=== PATIENT | male | born 1955 | race Hispanic/Latino ===

== ENCOUNTER 2022-01-08 06:38 | Inpatient (IN) | payer BC, MEDICARE, SELFPAY ==
[2022-01-08] VITALS (19 sets, daily range): BP systolic 107–157; BP diastolic 57–113; PULSE 54–83; RESP 15–24; TEMP 36.4–36.6; O2SAT 92–99; BMI 43.6
--- NOTE | ~2022-01-08 | US_ITS ---
EXAMINATION: US venous doppler [facility] DATE: 01/09/2022 12:21 INDICATION: edema . TECHNIQUE: Grayscale images without and with compression and Doppler images of the bilateral lower ex tremity veins were obtained. COMPARISON: None FINDINGS: The right common femoral vein, profunda (deep) femoral vein, femoral vein, popliteal vein, peroneal v ein, posterior tibial veins, gastrocnemius vein, and greater saphenous vein are patent. The left common femoral vein, profunda femoral vein, femoral vein, popliteal vein, peroneal vein, pos terior tibial veins, gastrocnemius vein, and greater saphenous vein are patent. IMPRESSION: 1. Patent bilateral lower extremity veins. No evidence of deep venous thrombosis. Reviewed, dictated and finalized at location K. [facility]ER IMPRESSION: 1. Patent bilateral lower extremity veins. No evidence of deep venous thrombos is.
--- NOTE | ~2022-01-08 | XR_ITS ---
XR chest 2V DATE: 01/08/2022 07:33 INDICATION: Chest pain, syncope TECHNIQUE: PA and lateral views COMPARISON: 08/20/2018 AP and lateral chest FINDINGS: Cardiomegaly. Mild aortic unfolding. There is pulmonary vascular redistribution which may i ndicate mild pulmonary venous hypertension. Mild atelectasis at the right lung base. The lungs otherwise appear clear. No pleural effusion or pne umothorax. IMPRESSION: Cardiomegaly, pulmonary vascular redistribution, which may indicate mild congestive heart failure Mild atelectasis at right lung base Reviewed, dictated and finalized at location A.
--- NOTE | ~2022-01-08 | CT_ITS ---
EXAMINATION: CTA chest PE protocol DATE: 01/08/2022 09:11 INDICATION: Shortness of breath. Upper chest pain. Elevated d-dimer. TECHNIQUE: Computed tomography angiography (CTA) of the chest was performed with 100 mL Omnipaque-350 intravenous contrast timed to evaluate the pulmonary arteries. Coronal maximum intensity projection 3D-reconstructions were created by the technologist. Automated exposure control and iterative reconst ruction technique were employed. Exam dose: 974.16 mGy-cm total exam DLP. COMPARISON: 01/08/2022 PA and lateral chest CTA chest FINDINGS: There is diagnostic contrast enhancement of the pulmonary arteries and no evidence of pulmo nary embolism. Cardiomegaly. Coronary artery calcification. Prominent mitral annulus calcification. No pericardial o r pleural effusion. No thoracic aortic aneurysm or dissection. No hilar or mediastinal mass lesion or lymphadenopathy. There is mild diffuse patchy right upper lobe infiltrate. There is mild atelectasis at the left lung base. Normal morphology of the adrenal glands. Multiple faceted calcified gallstones, measuring up to approximately 8.7 mm. Degenerative changes of the lower cervical, thoracic and upper lumbar spine. No suspicious osteolytic or osteoblastic lesions are noted. IMPRESSION: Mild diffuse patchy right upper lobe infiltrate, suggesting right upper lobe pneumonia Mild atelectasis at left lung base No evidence of pulmonary embolism Cardiomegaly Cholelithiasis Reviewed, dictated and finalized at Location [facility]. Reviewed, dictated and finalized at location A.
--- NOTE | 2022-01-08 06:40 | ECG_ITS ---
Measurements Intervals [place] Rate: 55 P: 22 DC: 135 QRS: 18 QRSD: 92 T: 112 QT: 430 QTc: 412 Interpretive Statements SINUS BRADYCARDIA LEFT VENTRICULAR HYPERTROPHY WITH ST-T CHANGE CANNOT RULE OUT SEPTAL INFARCT, AGE INDETERMINATE BASELINE ARTIFACT- I, II, III, AVR, AVF ABNORMAL ECG NO PREVIOUS ECG AVAILABLE FOR COMPARISON Electronically Signed On 01-08-2022 7:41:01 CDT by Reginaldo Valdes D.O.
[2022-01-08] MEDS: ONDANSETRON INJ 4 MG/2 ML VIAL (06:48)
--- NOTE | 2022-01-08 07:11 | ED.CHESTPAIN ---
HPI - Chest Pain General Chief Complaint: Chest Pain Stated Complaint: CP and SOB Time Seen by Provider: 01/08/22 07:01 Source: RN notes reviewed History of Present Illness HPI narrative: Patient presents emergency department from home for chest pain. Patient states he got up this morning was going to get a shower when he experienced chest pain states the pain began the left side of his chest and radiated across the right side of his chest. The pain was described as a pressure. He does note mild shortness of breath with the pain. Patient called EMS at that time was transferred to the ER he was given a nitro which he states is completely resolved his pain and he is chest pain-free at this time. States that he does have a history of previous coronary artery disease with stent placement and is followed at the [place] Related Data Allergies Allergy/AdvReac Type Severity Reaction Status Date / Time codeine Allergy Mild Hives Verified 01/08/22 06:49 Review of Systems Review of Systems: Gen.: Denies fevers or chills ENT: Denies congestion Respiratory: Reports shortness of breath with chest pain CV: See HPI GI: Denies abdominal pain nausea, emesis or diarrhea Musculoskeletal: Denies back pain or muscle pain Neuro: Denies numbness, tingling, weakness or focal weakness Skin: Denies rash Except as documented, all other systems reviewed and negative [facility] Past Medical History Medical History (Updated 01/08/22 @ 10:04 by Elroy Gilbert DO) Coronary artery disease Diabetes mellitus Hypercholesterolemia Hypertension Social History Social History (Updated 01/08/22 @ 08:08 by Elroy Gilbert DO) Smoking status: Former smoker Exam Narrative: APPEARANCE: No acute distress, nontoxic, resting in bed EYES: EOMI HEENT: Normocephalic, atraumatic, OMM RESPIRATORY: No respiratory distress wheezing in the bilateral lung brown with decreased breath sounds in bases no rhonchi CARDIOVASCULAR: Regular rate and rhythm without murmurs rubs or gallops. ABDOMINAL: Soft, nontender, nondistended, no rebound or guarding MUSCULOSKELETAl: Moves all extremities. No clubbing, cyanosis or edema. NEURO: Awake and alert. Following commands, speech normal, no focal deficits SKIN:: Warm, dry. No rashes lesions or abrasions PSYCHIATRIC: Normal affect/mood, Course Course Emergency Course: Patient given 2 breathing treatments in ED following this still continues have some wheezing upper lung brown with breathing is improved Discussed with Dr. Pratt presentation and work-up agrees with consult Discussed with Dr. Baker presentation work-up agrees with admission Discussed with patient and family results of workup and diagnosis. Discussed need for admission. Patient and family understand and agree to current treatment plan Vital Signs Vital signs: Vital Signs Pulse Rate 57 L 01/08/22 06:32 Respiratory Rate 17 01/08/22 06:32 Blood Pressure 140/113 H 01/08/22 06:32 Pulse Oximetry 93 01/08/22 06:32 Oxygen Delivery Room Air 01/08/22 06:32 Pulse Rate 76 01/08/22 09:41 Respiratory Rate 17 01/08/22 09:41 Blood Pressure 131/57 L 01/08/22 09:41 Pulse Oximetry 95 01/08/22 09:41 Oxygen Delivery Room Air 01/08/22 07:51 MDM - Chest Pain Lab Data Result diagrams: 01/08/22 07:06 01/08/22 07:06 Labs: Lab Results 01/08/22 01/08/22 01/08/22 Range/Units 07:06 07:06 07:06 WBC 8.1 (4.5-10.0) K/mm3 RBC 4.12 L (4.6-6.20) M/mm3 Hgb 13.1 L (14.0-18.0) g/dL Hct 40.7 L (42.0-52.0) % MCV 98.8 (80-100) fl MCH 31.8 (26-34) pg MCHC 32.2 (32-36) g/dl RDW 13.2 (11.5-14.5) % Plt Count 190 (150-375) k/mm3 MPV 11.6 H (7.4-10.4) fl Immature Gran % (Auto) 0.2 (0-0.5) % Neut % (Auto) 62.6 (45.5-73.1) % Lymph % (Auto) 25.8 (18.3-44.2) % [place] % (Auto) 8.0 (2.6-8.5) % Eos % (Auto) 3.2 (0-4.4) % Baso % (Auto) 0.2 (0.2-1.2
[2022-01-08 07:12] LABS: Basophils Percent Auto 0.2 % (0.2-1.2); Eosinophils Absolute Auto 0.3 K/mm3 (0-0.3); Eosinophils Percent Auto 3.2 % (0-4.4); Hematocrit 40.7 % (42.0-52.0); Hemoglobin 13.1 g/dL (14.0-18.0); Immature Granulocyte Absolute 0.02 K/mm3 (0.00-0.031); Immature Granulocyte Percent A 0.2 % (0-0.5); Lymphocytes Absolute Auto 2.09 K/mm3 (0.9-3.2); Lymphocytes Percent Auto 25.8 % (18.3-44.2); Mean Corpuscular HGB Conc 32.2 g/dl (32-36); Mean Corpuscular Hemoglobin 31.8 pg (26-34); Mean Corpuscular Volume 98.8 fl (80-100); Mean Platelet Volume 11.6 fl (7.4-10.4); Monocytes Absolute Auto 0.7 K/mm3 (0.1-0.6); Neutrophils Absolute Auto 5.1 K/mm3 (1.3-6.7); Neutrophils Percent Auto 62.6 % (45.5-73.1); Platelet Count Result 190 k/mm3 (150-375); Red Blood Count 4.12 M/mm3 (4.6-6.20); Red Cell Distribution Width 13.2 % (11.5-14.5); White Blood Count 8.1 K/mm3 (4.5-10.0)
[2022-01-08 07:25] LABS: Alanine Aminotransferase 35 U/L (6-50); Albumin Level 4.2 g/dL (3.5-5.1); Alkaline Phosphatase 64 U/L (38-126); Anion Gap 12 mmol/L (8-16); Aspartate Amino Transferase 32 U/L (17-59); Bilirubin,Total 0.8 mg/dL (0.2-1.3); Blood Urea Nitrogen 21 mg/dL (9-20); Calcium 8.3 mg/dL (8.4-10.2); Carbon Dioxide 27 mmol/L (22-30); Chloride 101 mmol/L (98-107); Estimated CRCL calculation 71 ml/min; Estimated Glomerular Filt Rate > 60; Glucose 164 mg/dL (65-110); Lipase 149 U/L (23-300); Potassium 3.9 mmol/L (3.4-5.0); Sodium 140 mmol/L (137-145)
[2022-01-08 07:37] LABS: Troponin I < 0.012 ng/mL (0.000-0.034)
[2022-01-08 07:47] LABS: INR 1.1; Prothrombin Time 13.6 Seconds (11.1-14.7)
[2022-01-08 07:48] LABS: Partial Thromboplastin Time 23.4 SECONDS (22.3-36.8)
[2022-01-08 08:14] LABS: SARS-CoV-2 RNA PCR Negative
[2022-01-08] MEDS: methylPREDNISolone SOD SUCC 125 MG VIAL IV PUSH (08:15)
[2022-01-08] MEDS: ALBUTEROL SULFATE NEB 2.5 MG/3 ML INH 5 MG INHALATION ×3 (08:18→20:41)
[2022-01-08] MEDS: IPRATROPIUM BR 0.02% INH SOLN 0.5 MG/2.5 ML VIAL INHALATION ×3 (08:18→20:42)
--- NOTE | 2022-01-08 08:21 | PC.NURSE ---
lab called regarding add on labs.
[2022-01-08 08:40] LABS: NT Pro B Type Natriuretic Pept 1220 pg/mL (5-100)
[2022-01-08 08:49] LABS: D Dimer 1.05 ug/mL (<0.48)
[2022-01-08] MEDS: SODIUM CHLORIDE 0.9% IV 1,000 ML 999 ML IV CONT (10:29)
[2022-01-08 10:35] LABS: Lactic Acid Reflex 0.9 mmol/L (0.7-2.0)
[2022-01-08 10:48] LABS: Troponin I < 0.012 ng/mL (0.000-0.034)
--- NOTE | 2022-01-08 12:51 | ADMGEN ---
This patient, Anderson Duran, was admitted to IMU Room 209-01. Patient/family oriented to hospital policies and general routines including ID bracelet, bed and alarms, visiting hours, pain management, procedures, bathroom and other care routines, personal items, smoking policy, room service/diet, and visiting hours. Information on how to activate the Rapid Response Team has been discussed. Patient/Family are encouraged to report perceived risks to care and to ask questions if they do not understand what they are told or what they should do.
--- NOTE | 2022-01-08 13:45 | PM.IMHP ---
H&P: HPI History of Present Illness Date/Time: 01/08/22 13:45 Chief Complaint: Chest pain and shortness a breath. Narrative: This is a very pleasant 66-year-old male with coronary artery disease status post stent x3 followed by the [place], hypertension, hyperlipidemia, asthma, and type 2 diabetes mellitus who presented to the emergency department via EMS from his place of employment for evaluation of chest pain and shortness of breath. He has not felt well over the past 1 week with nonproductive cough and wheezing which he initially attributed to change in weather. On he had mid chest discomfort with the shortness of breath and he was seen in the ER at [facility]. Apparently everything checked out okay and he was discharged home with instructions to follow up with his chucker. He spoke with his chucker the following day and she instructed him to return to the emergency department on Monday morning for admission for a cardiac workup however his symptoms recurred today and he came to the closest ER. Upon waking this morning he was okay, albeit he has been tired as he has been on mandatory overtime working 6 days a week. Not long prior to arrival he developed sudden onset of aching discomfort throughout the anterior chest associated with shortness of breath, lightheadedness, dizziness, and sweats. He sat down and immediately took a sublingual nitroglycerin and his symptoms started to subside. About 2 minutes thereafter he had an urge to have a bowel movement and he stood up to go to the bathroom however he instead lost consciousness and fell back, striking his head on the ground. EMS was summoned and he was brought to the ER for evaluation. His vital signs were stable on arrival and he has had 3 negative troponins. D-dimer was elevated and a subsequent CTA of the chest was negative for pulmonary embolism though did note findings of right upper lobe pneumonia and cardiomegaly. Given his recurrent chest pain, the [place] was contacted however they have no beds and he is being admitted to this facility. At the time my evaluation he is doing okay and he has not had any recurrence of his chest pain. He feels much better after receiving a nebulizer and Solu-Medrol in the emergency department. Review of Systems Review of Systems: Twelve systems were reviewed. No fever. Denies sick contacts. No recent antibiotic use. He has not noticed any blood in his stool. He has a mild headache secondary to the nitroglycerin. No sinus congestion and sore throat. Cough is nonproductive. He has not had exertional chest pain. No pleuritic pain or palpitations. Denies orthopnea and paroxysmal nocturnal dyspnea. More recently he has had increase in lower extremity swelling up to the knees, right greater than left. This is quite unusual for him. No history of venous thromboembolism. No vertigo. No nausea or vomiting. He had a single episode of diarrhea at work today. He believes his diabetes is well controlled on metformin. Except as documented, all other systems were reviewed and are negative. [facility] Past Medical History Medical History Asthma Coronary artery disease Status post stent x 3. Followed by cardiology at [facility]. Diabetes mellitus Hypercholesterolemia Hypertension Obstructive sleep apnea on CPAP Surgical History Surgical History History of arthroscopy of both knees History of bilateral carpal tunnel release History of cardiac catheterization History of coronary artery stent placement Family History Family History Mother Asthma Sibling Asthma Father No problems noted. Social History Social History Social History: Surrogate medical decision maker: Genevieve Duran, spouse. Code status: Full code.
[2022-01-08 14:02] LABS: Troponin I < 0.012 ng/mL (0.000-0.034)
[2022-01-08] MEDS: methylPREDNISolone SOD SUCC 125 MG VIAL 60 MG IV PUSH (14:43)
[2022-01-08 19:35] LABS: Hemoglobin A1C 6.1 % (<5.7)
[2022-01-08] MEDS: carvediloL 6.25 MG TABLET PO (20:18)
[2022-01-08 20:28] LABS: Thyroid Stimulating Hormone Reflex 0.181 uIU/mL (0.465-4.68)
[2022-01-08 20:36] LABS: Glucose Point of Care 215 mg/dl (65-105)
[2022-01-08] MEDS: WATER FOR IRRIGATION, STERILE 1,000 ML BOTTLE 1000 ML (22:00)
[2022-01-08 22:10] LABS: Total Triiodothyronine (T3) 1.35 NG/ML (0.97-1.69)
[2022-01-09] VITALS (23 sets, daily range): BP systolic 115–158; BP diastolic 52–82; PULSE 60–102; RESP 14–20; TEMP 36–36.9; O2SAT 93–100
--- NOTE | 2022-01-09 01:02 | PC.NURSE ---
Daylight Savings Time For Daylight Savings Time Ending in the Fall - Clocks are moved back. For Daylight Savings Time Beginning in the Spring - Clocks are moved ahead. For [facility], the time of change occurs at 0200 hrs. Time is taken from the server engineer. This entry on the patient's chart recognizes the change in time reflected during documentation. Example: 2 entries for vital signs may be charted for 0200 hrs.
[2022-01-09] MEDS: IPRATROPIUM BR 0.02% INH SOLN 0.5 MG/2.5 ML VIAL INHALATION ×4 (03:32→20:39)
[2022-01-09] MEDS: ALBUTEROL SULFATE NEB 2.5 MG/3 ML INH 5 MG INHALATION ×4 (03:32→20:39)
[2022-01-09 05:42] LABS: Basophils Percent Auto 0.1 % (0.2-1.2); Hematocrit 41.3 % (42.0-52.0); Hemoglobin 13.1 g/dL (14.0-18.0); Immature Granulocyte Absolute 0.02 K/mm3 (0.00-0.031); Immature Granulocyte Percent A 0.2 % (0-0.5); Lymphocytes Absolute Auto 1.83 K/mm3 (0.9-3.2); Lymphocytes Percent Auto 19.2 % (18.3-44.2); Mean Corpuscular HGB Conc 31.7 g/dl (32-36); Mean Corpuscular Hemoglobin 31.6 pg (26-34); Mean Corpuscular Volume 99.5 fl (80-100); Mean Platelet Volume 11.8 fl (7.4-10.4); Monocytes Absolute Auto 0.6 K/mm3 (0.1-0.6); Monocytes Percent Auto 6.6 % (2.6-8.5); Neutrophils Absolute Auto 7.1 K/mm3 (1.3-6.7); Neutrophils Percent Auto 73.9 % (45.5-73.1); Platelet Count Result 199 k/mm3 (150-375); Red Blood Count 4.15 M/mm3 (4.6-6.20); Red Cell Distribution Width 13.3 % (11.5-14.5); White Blood Count 9.6 K/mm3 (4.5-10.0)
[2022-01-09 05:47] LABS: Alanine Aminotransferase 32 U/L (6-50); Albumin Level 4.2 g/dL (3.5-5.1); Alkaline Phosphatase 61 U/L (38-126); Anion Gap 13 mmol/L (8-16); Aspartate Amino Transferase 27 U/L (17-59); Bilirubin,Total 0.5 mg/dL (0.2-1.3); Blood Urea Nitrogen 26 mg/dL (9-20); Calcium 8.5 mg/dL (8.4-10.2); Carbon Dioxide 27 mmol/L (22-30); Chloride 100 mmol/L (98-107); Cholesterol 220 mg/dL (0-200); Estimated CRCL calculation 96 ml/min; Estimated Glomerular Filt Rate > 60; Glucose 142 mg/dL (65-110); HDL Direct 57 mg/dL; Potassium 4.1 mmol/L (3.4-5.0); Sodium 140 mmol/L (137-145); Triglycerides 135 mg/dL (<150)
[2022-01-09 05:58] LABS: LDL Cholesterol Direct 93 mg/dL
[2022-01-09 08:27] LABS: Glucose Point of Care 185 mg/dl (65-105)
[2022-01-09] MEDS: lisinopriL 10 MG TABLET 30 MG PO (09:19)
[2022-01-09] MEDS: carvediloL 6.25 MG TABLET PO ×2 (09:19→16:54)
[2022-01-09] MEDS: ASPIRIN 81 MG CHEWABLE TABLET PO (09:20)
[2022-01-09] MEDS: FUROSEMIDE INJ 40 MG/4 ML VIAL IV PUSH (10:51)
[2022-01-09] MEDS: predniSONE 20 MG TABLET 40 MG PO (10:51)
--- NOTE | 2022-01-09 11:53 | PM.IMPN ---
Progress Note: A&P Assessment and Plan (1) Chest pain: Code(s): R07.9 - Chest pain, unspecified Status: Acute Assessment and Plan: cardiology consult. Echocardiogram pending. (2) Community acquired pneumonia: Code(s): J18.9 - Pneumonia, unspecified organism Status: Acute Assessment and Plan: Continue antibiotics. (3) Syncope: Code(s): R55 - Syncope and collapse Status: Acute Assessment and Plan: Patient had a syncopal episode within a minute or 2 of taking sublingual nitroglycerin which is likely the etiology. He will be monitor on telemetry to rule out cardiac dysrhythmia. (4) Asthma exacerbation: Code(s): J45.901 - Unspecified asthma with (acute) exacerbation Status: Acute Assessment and Plan: Prednisone. (5) Obstructive sleep apnea on CPAP: Code(s): G47.33 - Obstructive sleep apnea (adult) (pediatric); Z99.89 - Dependence on other enabling machines and devices Status: Acute Assessment and Plan: CPAP will be provided for the patient to use while hospitalized. (6) Coronary artery disease: Code(s): I25.10 - Atherosclerotic heart disease of [place] coronary artery without angina pectoris Status: Acute Assessment and Plan: Continue aspirin and beta-ky. I do not see that he is on a statin for unclear reasons. Lipid levels ordered for a.m.. Subjective Date/time seen: 01/09/22 11:53 new complaints Exam Const: Other: Well-developed, nontoxic-appearing gentleman sitting up in bed. Weight: 116 kilograms. BMI: 43.7. HENMT: Other: Normocephalic. Oral mucosa is tacky. Oropharynx clear. Eyes: Other: Pupils reactive. Extraocular motions intact. Conjunctiva mildly injected. Neck: Other: No JVD or lymphadenopathy. Chest: Other: No tenderness to palpation over the chest wall. Resp: Other: Respirations are nonlabored and he is speaking in full sentences. Lung sounds are diminished at the bases with faint right-sided crackles and end-expiratory wheezes. Cardio: Other: Regular rate and rhythm with normal S1-S2. GI: Other: Soft, nontender, nondistended with positive bowel sounds. Skin: Other: Warm and dry. Neuro: Other: Alert and oriented. Cranial nerves are grossly intact. No focal deficits a casual conversation. Extrem: Other: No cyanosis or clubbing. Pitting edema of the lower legs up to the knees, right greater than left. No palpable knots or cords. Negative Oscar sign bilaterally. Psych: Other: Pleasant cooperative with appropriate mood and affect. Objective Data Vital Signs Vital Signs: Vital Signs - 24 hr 01/08/22 13:00 01/08/22 13:30 01/08/22 14:00 Temperature 97.8 F Pulse Rate 65 67 Respiratory Rate 22 H Blood Pressure 107/62 Pulse Oximetry 95 Oxygen Delivery Room Air 01/08/22 15:59 01/08/22 16:00 01/08/22 16:00 Temperature 97.8 F Pulse Rate 70 75 Respiratory Rate 24 H Blood Pressure 135/83 Pulse Oximetry 95 Oxygen Delivery Room Air 01/08/22 18:00 01/08/22 20:00 01/08/22 20:00 Temperature 97.5 F L Pulse Rate 83 76 Respiratory Rate 20 Blood Pressure 157/63 H 128/73 Pulse Oximetry 92 Oxygen Delivery 01/08/22 20:18 01/08/22 20:27 01/08/22 20:28 Temperature Pulse Rate 68 Respiratory Rate Blood Pressure 142/63 H 148/71 H Pulse Oximetry Oxygen Delivery 01/08/22 20:42 01/08/22 20:00 01/08/22 20:00 Temperature Pulse Rate 54 L 80 Respiratory Rate 16 Blood Pressure Pulse Oximetry Oxygen Delivery Room Air 01/08/22 22:00 01/08/22 23:58 01/09/22 00:00 Temperature 97.9 F Pulse Rate 80 73 Respiratory Rate 16 Blood Pressure 117/59 L Pulse Oximetry 99 Oxygen Delivery Room Air 01/09/22 00:00 01/09/22 02:00 01/09/22 04:00 Temperature 97.3 F L Pulse Rate 71 67 67 Respiratory Rate 18 Blood Pressure 127/71 Pulse Oximetry 94
--- NOTE | 2022-01-09 13:21 | PM.CNCAR ---
Assessment and Plan Assessment and plan (1) Chest pain: Code(s): R07.9 - Chest pain, unspecified Status: Acute Assessment and Plan: Atypical most likely musculoskeletal in setting of pneumonia and acute respiratory distress. no ischemic ECG changes, ruled out for myocardial infarction negative serial cardiac enzymes. Patient reports having minimal coronary disease and describes severe coronary spasm for which he received 3 stents by [facility] several years ago. Records pending. Continue aspirin 81 mg daily. Add statin therapy goal LDL less than 70. Continue carvedilol, lisinopril. Check 2D echocardiogram in a.m. to assess LV size/ function, valve pathology pulmonary pressures. Recommendation to follow. (2) Coronary artery disease: Code(s): I25.10 - Atherosclerotic heart disease of [place] coronary artery without angina pectoris Status: Acute Assessment and Plan: Will review records when available. Continue medical therapy as above. Patient reports having a stress test in the past year at the [place]. Will review records unavailable in this regard. At this time, I do not feel repeat ischemic evaluation at this time is warranted unless he has recurrent concerning anginal symptoms or new ECG changes. He indicated he wishes to change his cardiovascular care to me and follow up as an outpatient with our practice. (3) Community acquired pneumonia: Code(s): J18.9 - Pneumonia, unspecified organism Status: Acute Assessment and Plan: Management per primary service. (4) Syncope: Code(s): R55 - Syncope and collapse Status: Acute Assessment and Plan: Clinically appears to be vasovagal in etiology in setting of pneumonia, paroxysm coughing and post some nitroglycerin with position change resulting in transient loss of consciousness which he had significant prodromal symptoms. Continue telemetry overnight. (5) Asthma exacerbation: Code(s): J45.901 - Unspecified asthma with (acute) exacerbation Status: Acute Assessment and Plan: Management per primary service, bronchodilators, steroids, antibiotics. (6) Hypertension: Code(s): I10 - Essential (primary) hypertension Status: Acute Assessment and Plan: Stable, continue home medical therapy. (7) Hypercholesterolemia: Code(s): E78.00 - Pure hypercholesterolemia, unspecified Status: Acute Assessment and Plan: Add atorvastatin 40 mg at bedtime. Check lipid panel. Goal LDL less than 70. (8) Diabetes mellitus: Code(s): E11.9 - Type 2 diabetes mellitus without complications Status: Acute Assessment and Plan: Management per primary service. (9) Obstructive sleep apnea on CPAP: Code(s): G47.33 - Obstructive sleep apnea (adult) (pediatric); Z99.89 - Dependence on other enabling machines and devices Status: Acute Assessment and Plan: Compliance with CPAP. History of Present Illness History of Present Illness Consult date/time: Date of service:01/09/22 13:21 Requesting physician: Humaira Walter PA-C Consult reason: chest pain Reason For Visit: Community aquired pneumonia, chest pain, AE, COPD Narrative: Patient is a pleasant 66-year-old male with a past medical history significant for reported CAD status post 3 stents performed by [facility] proximally 5 years ago currently fall at the [place] for [facility]iology, hypertension, hyperlipidemia, type 2 diabetes mellitus, history of asthma who presented to the emergency department via EMS for complaints of shortness of breath, chest pain and reported syncope. Patient reports had not felt very well for the past week with progressive cough, wheezing shortness of breath. He states upon rising in the morning who did feel somewhat sweaty and morning presentation he felt particularly worse or nauseous yet went on to work. He states he
[2022-01-09 14:15] LABS: Glucose Point of Care 164 mg/dl (65-105)
[2022-01-09] MEDS: POTASSIUM CHLORIDE 20 MEQ TABLET.ER PO (15:15)
[2022-01-09] MEDS: TORSEMIDE 10 MG TABLET PO (15:15)
[2022-01-09 16:40] LABS: Glucose Point of Care 164 mg/dl (65-105)
--- NOTE | 2022-01-09 18:12 | PC.NURSE ---
On 01/09/22, the student, Devika Harry, provided care and completed [employer] documentation on this patient. I have reviewed the student's documentation and agree with the findings.
[2022-01-09 20:27] LABS: Glucose Point of Care 154 mg/dl (65-105)
[2022-01-09] MEDS: FLUTICASONE/SALMETEROL 45-21 MCG INHALER 1 PUFF 2 PUFF INHALATION (20:40)
[2022-01-10] VITALS (28 sets, daily range): BP systolic 106–131; BP diastolic 58–83; PULSE 54–93; RESP 16–20; TEMP 36.3–37; O2SAT 91–100
[2022-01-10] MEDS: BENZOCAINE/MENTHOL (*BKC) 18 EA LOZENGE 1 LOZENGE PO (00:44)
[2022-01-10] MEDS: IPRATROPIUM BR 0.02% INH SOLN 0.5 MG/2.5 ML VIAL INHALATION ×4 (02:53→20:05)
[2022-01-10] MEDS: ALBUTEROL SULFATE NEB 2.5 MG/3 ML INH 5 MG INHALATION ×4 (02:53→20:05)
[2022-01-10 08:12] LABS: Glucose Point of Care 95 mg/dl (65-105)
[2022-01-10] MEDS: FLUTICASONE/SALMETEROL 45-21 MCG INHALER 1 PUFF 2 PUFF INHALATION ×2 (08:37→20:05)
[2022-01-10] MEDS: carvediloL 6.25 MG TABLET PO ×2 (08:47→16:55)
[2022-01-10] MEDS: lisinopriL 10 MG TABLET 30 MG PO (08:47)
[2022-01-10] MEDS: ASPIRIN 81 MG CHEWABLE TABLET PO (08:47)
[2022-01-10] MEDS: predniSONE 20 MG TABLET 40 MG PO (08:48)
--- NOTE | 2022-01-10 10:23 | PM.PNCARD ---
Progress Note: A&P Assessment and Plan (1) Chest pain: Code(s): R07.9 - Chest pain, unspecified Status: Acute Assessment and Plan: Atypical most likely musculoskeletal in setting of pneumonia and acute respiratory distress. no ischemic ECG changes, ruled out for myocardial infarction negative serial cardiac enzymes. Patient reports having minimal coronary disease and describes severe coronary spasm for which he received 3 stents by [facility] several years ago. Records pending. Continue aspirin 81 mg daily. Add statin therapy goal LDL less than 70. Continue carvedilol, lisinopril. Echo is pending (2) Coronary artery disease: Code(s): I25.10 - Atherosclerotic heart disease of [place] coronary artery without angina pectoris Status: Acute Assessment and Plan: Will review records when available. Continue medical therapy as above. Patient reports having a stress test in the past year at the [place]. Will review records unavailable in this regard. At this time, I do not feel repeat ischemic evaluation at this time is warranted unless he has recurrent concerning anginal symptoms or new ECG changes. He indicated he wishes to change his cardiovascular care to me and follow up as an outpatient with our practice. (3) Community acquired pneumonia: Code(s): J18.9 - Pneumonia, unspecified organism Status: Acute Assessment and Plan: Management per primary service. (4) Syncope: Code(s): R55 - Syncope and collapse Status: Acute Assessment and Plan: Clinically appears to be vasovagal in etiology in setting of pneumonia, paroxysm coughing and post some nitroglycerin with position change resulting in transient loss of consciousness which he had significant prodromal symptoms. Continue telemetry overnight. (5) Asthma exacerbation: Code(s): J45.901 - Unspecified asthma with (acute) exacerbation Status: Acute Assessment and Plan: Management per primary service, bronchodilators, steroids, antibiotics. (6) Hypertension: Code(s): I10 - Essential (primary) hypertension Status: Acute Assessment and Plan: Stable, continue home medical therapy. (7) Hypercholesterolemia: Code(s): E78.00 - Pure hypercholesterolemia, unspecified Status: Acute Assessment and Plan: Continue statin (8) Diabetes mellitus: Code(s): E11.9 - Type 2 diabetes mellitus without complications Status: Acute Assessment and Plan: Management per primary service. (9) Obstructive sleep apnea on CPAP: Code(s): G47.33 - Obstructive sleep apnea (adult) (pediatric); Z99.89 - Dependence on other enabling machines and devices Status: Acute Assessment and Plan: Compliance with CPAP. (10) COPD exacerbation: Code(s): J44.1 - Chronic obstructive pulmonary disease with (acute) exacerbation Status: Acute Subjective Date/time seen: 01/10/22 10:23 Interval history: 66-year-old admitted for shortness of breath, chest pain, pneumonia Date of service 01/10/2022 He feels much better today. He has no chest pain. Still wheezing in the low short of breath and coughing but improved Review of Systems Review of Systems: All systems reviewed & are unremarkable except as noted in HPI and below Constitutional: Constitutional: Reports as per HPI and Reports no additional constitutional complaints Eyes: Eyes: Reports as per HPI and Reports no additional eye complaints ENT: Reports system reviewed and no additional complaints, except as documented and Reports as per HPI Cardiovascular: Cardiovascular: Reports as per HPI and Reports no additional cardiovascular complaints Respiratory: Respiratory: Reports as per HPI, Reports cough and Reports dyspnea Gastrointestinal: Gastrointestinal: Reports as per HPI and Reports no additional gastrointestinal complaints Genitourinary: Genitou
[2022-01-10 11:34] LABS: Glucose Point of Care 136 mg/dl (65-105)
--- NOTE | 2022-01-10 11:48 | PM.IMPN ---
Progress Note: A&P Assessment and Plan (1) Chest pain: Code(s): R07.9 - Chest pain, unspecified Status: Acute Assessment and Plan: cardiology consult. no further plants (2) Community acquired pneumonia: Code(s): J18.9 - Pneumonia, unspecified organism Status: Acute Assessment and Plan: Continue antibiotics. (3) Syncope: Code(s): R55 - Syncope and collapse Status: Acute Assessment and Plan: no more dizziness or vertigo monitor (4) Asthma exacerbation: Code(s): J45.901 - Unspecified asthma with (acute) exacerbation Status: Acute Assessment and Plan: Prednisone. (5) Obstructive sleep apnea on CPAP: Code(s): G47.33 - Obstructive sleep apnea (adult) (pediatric); Z99.89 - Dependence on other enabling machines and devices Status: Acute Assessment and Plan: CPAP will be provided for the patient to use while hospitalized. (6) Coronary artery disease: Code(s): I25.10 - Atherosclerotic heart disease of [place] coronary artery without angina pectoris Status: Acute Assessment and Plan: Continue aspirin and beta-ky. I do not see that he is on a statin for unclear reasons. Lipid levels ordered for a.m.. Subjective Date/time seen: 01/10/22 11:48 no new complaints Exam Const: Other: Well-developed, nontoxic-appearing gentleman sitting up in bed. Weight: 116 kilograms. BMI: 43.7. HENMT: Other: Normocephalic. Oral mucosa is tacky. Oropharynx clear. Eyes: Other: Pupils reactive. Extraocular motions intact. Conjunctiva mildly injected. Neck: Other: No JVD or lymphadenopathy. Chest: Other: No tenderness to palpation over the chest wall. Resp: Other: Respirations are nonlabored and he is speaking in full sentences. Lung sounds are diminished at the bases with faint right-sided crackles and end-expiratory wheezes. Cardio: Other: Regular rate and rhythm with normal S1-S2. GI: Other: Soft, nontender, nondistended with positive bowel sounds. Skin: Other: Warm and dry. Neuro: Other: Alert and oriented. Cranial nerves are grossly intact. No focal deficits a casual conversation. Extrem: Other: No cyanosis or clubbing. Pitting edema of the lower legs up to the knees, right greater than left. No palpable knots or cords. Negative Oscar sign bilaterally. Psych: Other: Pleasant cooperative with appropriate mood and affect. Objective Data Vital Signs Vital Signs: Vital Signs - 24 hr 01/09/22 12:00 01/09/22 12:00 01/09/22 12:00 Temperature 97.2 F L Pulse Rate 102 H 65 Respiratory Rate 14 Blood Pressure 120/60 Pulse Oximetry 93 Oxygen Delivery Room Air 01/09/22 14:00 01/09/22 16:00 01/09/22 16:54 Temperature 98.2 F Pulse Rate 71 77 82 Respiratory Rate 16 Blood Pressure 115/52 L Pulse Oximetry 98 Oxygen Delivery 01/09/22 16:00 01/09/22 18:00 01/09/22 16:00 Temperature Pulse Rate 80 74 Respiratory Rate Blood Pressure Pulse Oximetry Oxygen Delivery Room Air 01/09/22 20:27 01/09/22 20:28 01/09/22 20:40 Temperature 98.5 F Pulse Rate 74 65 Respiratory Rate 18 20 Blood Pressure 121/66 121/75 Pulse Oximetry 97 Oxygen Delivery 01/09/22 20:00 01/09/22 20:00 01/09/22 22:00 Temperature Pulse Rate 86 61 Respiratory Rate Blood Pressure Pulse Oximetry Oxygen Delivery Room Air 01/10/22 00:08 01/10/22 00:00 01/10/22 00:00 Temperature 98.4 F Pulse Rate 58 L 77 Respiratory Rate 16 Blood Pressure 123/73 Pulse Oximetry 98 Oxygen Delivery Room Air 01/10/22 00:42 01/10/22 02:00 01/10/22 05:21 Temperature 98.6 F Pulse Rate 56 L 55 L 54 L Respiratory Rate 18 20 Blood Pressure 106/73 122/73 Pulse Oximetry 96 100 Oxygen Delivery 01/10/22 04:00 01/10/22 04:00 01/09/22 20:53 Temperature Pulse Rate 55 L 64 Respiratory Rate Blood Pressure
[2022-01-10] MEDS: PERFLUTREN LIPID MICROSPHERES 1.5 ML VIAL DILUTED TO 10 ML TOTAL VOLUME IV PUSH (12:15)
[2022-01-10] MEDS: POTASSIUM CHLORIDE 20 MEQ TABLET.ER PO (12:57)
[2022-01-10] MEDS: TORSEMIDE 10 MG TABLET PO (12:58)
--- NOTE | 2022-01-10 13:39 | IVDEFINITY ---
Prior to administration of IV Definity the patient was educated on the risks and benefits of the imaging enhancing agent including potential adverse side effects. The patient verbalized understanding. Allergies were verified. No exclusion criteria were identified and at least one of the following inclusion criteria were met: 1) physician request, 2) patient technically difficult to image (per the [place] [employer]ocardi[employer] guidelines of two or more segments not discernable within the apical view), or 3) questionable left ventricular function. ?
[2022-01-10 16:41] LABS: Glucose Point of Care 127 mg/dl (65-105)
--- NOTE | 2022-01-10 19:07 | ECHO_ITS ---
Patient Info Name: Anderson Duran Age: 66 years : 1955 Gender: Male Ht: 65 in Wt: 262 lbs BSA: 2.40 m2 HR: 60 bpm BP: 122 / 73 mmHg Heart Rhythm: Sinus Rhythm Technical Quality: Fair Exam Date: 01/10/2022 12:15 PM Exam Location: [facility] Patient Status: Inpatient Admit Date: 01/09/2022 Staff Ordering Physician: Humaira Walter PA-C Literacy Consultant: Beatris Walter RDCS Attending Provider: Michoacano Baker MD Referring Physician: Saba CASTAÑEDA; Exam Type: CA echo dop color flow w con Study Info Indications I51.7 - Cardiomegaly R07.9 - Chest pain, unspecified Complete two-dimensional, color flow and Doppler transthoracic echocardiogram is performed with contrast to opacify the left ventricle and to improve the deliniation of the left ventricle endocardial borders. Contrast/Agitated Saline Contrast/Ag. Saline: Definity Amount: 3.00 ml Administered By: Beatris Walter RDCS Existing IV Access: Yes IV Access Condition: patent with no signs of infiltration Summary 1. Technically limited study because of obesity/definity contrast injected. 2. Moderate left ventricular hypertrophy with hyperdynamic systolic function and grade 2 diastolic noncompliance. 3. Markedly calcified mitral valve annulus. 4. Mildly enlarged left atrium. Left Ventricular Outflow Tract Name Value Normal LVOT 2D LVOT Diameter 1.89 cm LVOT Doppler LVOT Peak Gradient 7 mmHg LVOT Mean Gradient 5 mmHg LVOT VTI 25.73 cm LVOT VTI/AV VTI Ratio 0.78 LVOT Stroke Volume 71.78 ml LVOT CO 4.85 l/min LVOT CI 2.02 L/min/m2 Pulmonic Valve Name Value Normal RVOT Doppler RVOT Peak Gradient 1 mmHg PV Doppler PV Peak Gradient 5 mmHg Mitral Valve Name Value Normal MV Doppler MV Peak Gradient 9 mmHg MV Mean Gradient 3 mmHg MV Decel Holmes 555.15 cm/s2 MV PHT 0 s MV Area (PHT) 3.27 cm2 4.00-5.00 MV Area (Cont Eq VTI) 1.94 cm2 MV Diastolic Function MV E Peak Velocity 128.85 cm/s MV A Peak Velocity 47.92 cm/s
[2022-01-10 20:19] LABS: Glucose Point of Care 153 mg/dl (65-105)
[2022-01-11] VITALS (12 sets, daily range): BP systolic 119–143; BP diastolic 74–80; PULSE 53–99; RESP 12–20; TEMP 36.4–37.2; O2SAT 96–99
[2022-01-11 08:16] LABS: Glucose Point of Care 102 mg/dl (65-105)
[2022-01-11] MEDS: ALBUTEROL SULFATE NEB 2.5 MG/3 ML INH 5 MG INHALATION (09:10)
[2022-01-11] MEDS: IPRATROPIUM BR 0.02% INH SOLN 0.5 MG/2.5 ML VIAL INHALATION (09:10)
[2022-01-11] MEDS: FLUTICASONE/SALMETEROL 45-21 MCG INHALER 1 PUFF 2 PUFF INHALATION (09:10)
--- NOTE | 2022-01-11 10:04 | PM.PNCARD ---
Progress Note: A&P Assessment and Plan (1) Chest pain: Code(s): R07.9 - Chest pain, unspecified Status: Acute Assessment and Plan: Atypical most likely musculoskeletal in setting of pneumonia and acute respiratory distress. no ischemic ECG changes, ruled out for myocardial infarction negative serial cardiac enzymes. Patient reports having minimal coronary disease and describes severe coronary spasm for which he received 3 stents by [facility] several years ago. Records pending. Continue aspirin 81 mg daily. Add statin therapy goal LDL less than 70. Continue carvedilol, lisinopril. Echo is showing hyperdynamic LV. Mitral annular calcification. (2) Coronary artery disease: Code(s): I25.10 - Atherosclerotic heart disease of [place] coronary artery without angina pectoris Status: Acute Assessment and Plan: Continue medical therapy. Okay for discharge from cardiac perspective. Follow up with Dr. Pratt. (3) Community acquired pneumonia: Code(s): J18.9 - Pneumonia, unspecified organism Status: Acute Assessment and Plan: Management per primary service. (4) Syncope: Code(s): R55 - Syncope and collapse Status: Acute Assessment and Plan: Clinically appears to be vasovagal in etiology in setting of pneumonia, paroxysm coughing and post some nitroglycerin with position change resulting in transient loss of consciousness which he had significant prodromal symptoms. Continue telemetry overnight. (5) Asthma exacerbation: Code(s): J45.901 - Unspecified asthma with (acute) exacerbation Status: Acute Assessment and Plan: Management per primary service, bronchodilators, steroids, antibiotics. (6) Hypertension: Code(s): I10 - Essential (primary) hypertension Status: Acute Assessment and Plan: Stable, continue home medical therapy. (7) Hypercholesterolemia: Code(s): E78.00 - Pure hypercholesterolemia, unspecified Status: Acute Assessment and Plan: Continue statin (8) Diabetes mellitus: Code(s): E11.9 - Type 2 diabetes mellitus without complications Status: Acute Assessment and Plan: Management per primary service. (9) Obstructive sleep apnea on CPAP: Code(s): G47.33 - Obstructive sleep apnea (adult) (pediatric); Z99.89 - Dependence on other enabling machines and devices Status: Acute Assessment and Plan: Compliance with CPAP. (10) COPD exacerbation: Code(s): J44.1 - Chronic obstructive pulmonary disease with (acute) exacerbation Status: Acute Subjective Date/time seen: 01/11/22 10:04 Interval history: 66-year-old admitted for shortness of breath, chest pain, pneumonia Date of service 01/10/2022 He feels much better today. He has no chest pain. Still wheezing in the low short of breath and coughing but improved Date of service 01/11/2022: Feels good. No chest pain. Less short of breath. Review of Systems Review of Systems: All systems reviewed & are unremarkable except as noted in HPI and below Constitutional: Constitutional: Reports as per HPI and Reports no additional constitutional complaints Eyes: Eyes: Reports as per HPI and Reports no additional eye complaints ENT: Reports system reviewed and no additional complaints, except as documented and Reports as per HPI Cardiovascular: Cardiovascular: Reports as per HPI, Reports no additional cardiovascular complaints and Reports dyspnea Respiratory: Respiratory: Reports as per HPI, Reports no additional respiratory complaints, Reports cough and Reports dyspnea Gastrointestinal: Gastrointestinal: Reports as per HPI and Reports no additional gastrointestinal complaints Genitourinary: Genitourinary: Reports no additional male genitourinary complaints and Reports as per HPI Musculoskeletal: Musculoskeletal: Reports no additional musculoskeletal complain
[2022-01-11] MEDS: carvediloL 6.25 MG TABLET PO (11:19)
[2022-01-11] MEDS: ASPIRIN 81 MG CHEWABLE TABLET PO (11:19)
[2022-01-11] MEDS: lisinopriL 10 MG TABLET 30 MG PO (11:19)
[2022-01-11] MEDS: predniSONE 20 MG TABLET 40 MG PO (11:20)
--- NOTE | 2022-01-11 11:47 | PM.DS ---
DS: Admitting Diagnosis Discharge Date January 11, 2022 Admitting Diagnosis pneumonia, bronchitis DS: Discharge Diagnosis Discharge Diagnosis (1) Chest pain: Code(s): R07.9 - Chest pain, unspecified Status: Acute Assessment and Plan: cardiology consult. no further plans (2) Community acquired pneumonia: Code(s): J18.9 - Pneumonia, unspecified organism Status: Acute Assessment and Plan: Continue antibiotics. (3) Syncope: Code(s): R55 - Syncope and collapse Status: Acute Assessment and Plan: no more dizziness or vertigo monitor (4) Asthma exacerbation: Code(s): J45.901 - Unspecified asthma with (acute) exacerbation Status: Acute Assessment and Plan: Prednisone. (5) Obstructive sleep apnea on CPAP: Code(s): G47.33 - Obstructive sleep apnea (adult) (pediatric); Z99.89 - Dependence on other enabling machines and devices Status: Acute Assessment and Plan: CPAP will be provided for the patient to use while hospitalized. (6) Coronary artery disease: Code(s): I25.10 - Atherosclerotic heart disease of [place] coronary artery without angina pectoris Status: Acute Assessment and Plan: Continue aspirin and beta-ky. I do not see that he is on a statin for unclear reasons. Lipid levels ordered for a.m.. DS: Summary Hospital Course Hospital Course: patient is a 66-year-old male came with shortness of breath and hypoxia. He was found have pneumonia on chest x-ray. He was started on IV antibiotics and did exceptionally well. Also to note patient has history of bronchitis and had some wheezing on examination you start on prednisone. Now is able to walk up and down the heck without any issues. He is not requiring any oxygen can be discharged home. Time Spent with Patient Time attestation: Total time spent providing and/or coordinating discharge services: Exam Const: Other: Well-developed, nontoxic-appearing gentleman sitting up in bed. Weight: 116 kilograms. BMI: 43.7. HENMT: Other: Normocephalic. Oral mucosa is tacky. Oropharynx clear. Eyes: Other: Pupils reactive. Extraocular motions intact. Conjunctiva mildly injected. Neck: Other: No JVD or lymphadenopathy. Chest: Other: No tenderness to palpation over the chest wall. Resp: Other: Respirations are nonlabored and he is speaking in full sentences. Lung sounds are diminished at the bases with faint right-sided crackles and end-expiratory wheezes. Cardio: Other: Regular rate and rhythm with normal S1-S2. GI: Other: Soft, nontender, nondistended with positive bowel sounds. Skin: Other: Warm and dry. Neuro: Other: Alert and oriented. Cranial nerves are grossly intact. No focal deficits a casual conversation. Extrem: Other: No cyanosis or clubbing. Pitting edema of the lower legs up to the knees, right greater than left. No palpable knots or cords. Negative Oscar sign bilaterally. Psych: Other: Pleasant cooperative with appropriate mood and affect. DS: Data Data Completed and Pending Labs on day of discharge: Labs from last 24 hours 01/11/22 01/10/22 01/10/22 07:58 19:54 16:28 POC Capillary Glucose 102 153 H 127 H Preliminary micro results at discharge 01/09/22 10:17 Sputum Culture - Preliminary Sputum 01/08/22 10:20 Blood Culture - Preliminary Blood 01/08/22 10:11 Blood Culture - Preliminary Blood Discharge Plan Discharge Attending physician on discharge: Miles Lawson Consulting providers: Jeb Pratt Michael MD Discharging Clinician: Miles Lawson Patient Disposition: Home, Self-Care Activity: no preference Diet: as tolerated Patient Instructions: Antibiotic Form, Ceftriaxone (By injection), Azithromycin (By injection), Heart Failure (DC), Chest Pain (DC), Pain Management (DC), COPD (Chronic Obstructive Pulmonar
[2022-01-11 12:13] LABS: Glucose Point of Care 199 mg/dl (65-105)
[2022-01-11 19:00] LABS: Pneumococcal Antigen Urine Not Detected (Not Detected)
[2022-01-12 18:21] LABS: Mycoplasma IgM Antibody Titer 67 U/mL (<770)
[2022-01-12 18:49] LABS: Legionella pneumophila Ag Ur Not Detected (Not Detected)
== END 2022-01-11 14:26 | disposition home or self-care (01) | DRG 194 ==
LOC: ANHED 10:04 → ANHIMU 12:28
PROVIDERS: General Practice; Physician Assistant; Admitting Provider Family Medicine; Emergency Provider Emergency Medicine; Visit Provider Chiropractor
DX: J18.9 Pneumonia, unspecified organism (principal); J45.901 Unspecified asthma with (acute) exacerbation; R06.03 Acute respiratory distress; R09.02 Hypoxemia; R55 Syncope and collapse; T46.3X5A Adverse effect of coronary vasodilators, initial encounter; G47.33 Obstructive sleep apnea (adult) (pediatric); I25.10 Atherosclerotic heart disease of native coronary artery without angina pectoris; Z20.822 Contact with and (suspected) exposure to COVID-19; I10 Essential (primary) hypertension; E11.9 Type 2 diabetes mellitus without complications; E78.5 Hyperlipidemia, unspecified; Z87.891 Personal history of nicotine dependence; Z95.5 Presence of coronary angioplasty implant and graft
CPT/HCPCS: 36415; 71046; 71275; 80053; 80061; 82948; 83036; 83605; 83690; 83735; 83880; 84439; 84443; 84480; 84484; 85025; 85380; 85610; 85730; 86738; 87040; 87070; 87205; 87449; 87899; 93005; 93970; 94640; 94660; 96365; 96367; 96375; 96376; 99285; A9270; C8929; G0378; J0456; J0696; J1940; J2405; J2930; J7030; J7512; Q9957; Q9967; U0003; U0005

== ENCOUNTER 2023-04-18 09:39 | Emergency (ER) | payer OTHER, MEDICARE, SELFPAY ==
--- NOTE | ~2023-04-18 | XR_ITS ---
Left Knee Technique: AP, lateral, and sunrise views were obtained. Clinical History: Pain Findings: No fracture or dislocation is seen. Possible osteochondral lesion of the medial femoral con dyle. Joint spaces are preserved without degenerative or erosive change. Soft tissues are unremarkabl e. No joint effusion is seen. Impression: Possible osteochondral lesion of the medial femoral condyle. Consider follow-up MR as indicated. No acute fracture or dislocation. Reviewed, dictated and finalized at location M. RENCE ASSISTANT Impression: Possible osteochondral lesion of the medial femoral condyle. Consider follow-up MR as indicated. No acute fracture or dislocation.
--- NOTE | ~2023-04-18 | XR_ITS ---
AP view of the pelvis and AP and lateral views of the left hip Clinical history: Pain Findings: No acute fracture or dislocation is seen. Osseous alignment is anatomic. There is mild dege nerative change of both hip joints. Soft tissues are unremarkable. Impression: Mild degenerative change of both hip joints. Reviewed, dictated and finalized at location M. HOUSE COUNSEL Impression: Mild degenerative change of both hip joints.
--- NOTE | ~2023-04-18 | XR_ITS ---
Left Humerus Technique: AP and lateral views were obtained. Clinical History: Pain Findings: No fracture or dislocation is seen. Osseous alignment is anatomic. Visualized joint spaces are grossly preserved. Soft tissues are unremarkable. Impression: Unremarkable examination. No fracture or dislocation. Reviewed, dictated and finalized at location . EM TECHNOLOGIST Impression: Unremarkable examination. No fracture or dislocation.
[2023-04-18 09:41] VITALS: BP 167/90; PULSE 67; RESP 16; TEMP 36.4; O2SAT 97
--- NOTE | 2023-04-18 11:05 | ED.FALL ---
HPI - Fall General Chief Complaint: Fall Stated Complaint: fall Time Seen by Provider: 04/18/23 09:52 Source: patient Mode of arrival: ambulatory Limitations: no limitations History of Present Illness HPI Narrative: Patient is a 67-year-old male who presents the ED with report of a fall out of bed. Patient reports he was attempting to reach something on his nightstand on Monday when he rolled out of bed and fell to the ground. He landed on a small step stool on the ground with his left upper arm. He sustained an abrasion to the left upper arm and has since developed bruising in the area. Complains of persistent pain. Also reports pain to his left hip/left upper thigh, left knee. He has been taking Tylenol for the pain without much improvement. He takes an aspirin 81 mg daily. No other blood thinners. He denies head injury or LOC. Denies numbness or tingling. Denies chest pain, rib pain, shortness breath. Denies abdominal pain, nausea, vomiting. Related Data Home Medications Medication Instructions Recorded Confirmed aspirin 81 mg chewable tablet 81 mg PO DAILY 01/08/22 04/18/23 carvedilol 6.25 mg tablet (Coreg) 6.25 mg PO BID 01/08/22 04/18/23 lisinopril 30 mg tablet 30 mg PO DAILY 01/08/22 04/18/23 Allergies Allergy/AdvReac Type Severity Reaction Status Date / Time codeine Allergy Mild Hives Verified 04/18/23 10:21 Opioids - Morphine Analogues AdvReac Swelling Verified 04/18/23 10:21 Review of Systems Review of Systems: CONSTITUTIONAL: Denies fever, chills, or sweats. CARDIOVASCULAR: Denies chest pain. RESPIRATORY: Denies dyspnea. GASTROINTESTINAL: Denies abdominal pain, nausea, vomiting. MUSCULOSKELETAL: See HPI. NEUROLOGIC: Denies headache, dizziness, numbness, or weakness. All systems reviewed & are unremarkable except as noted in HPI and below PMFSH Past Medical History Medical History Asthma Coronary artery disease Status post stent x 3. Followed by cardiology at [facility]. Diabetes mellitus Hypercholesterolemia Hypertension Obstructive sleep apnea on CPAP Surgical History Surgical History History of arthroscopy of both knees History of bilateral carpal tunnel release History of cardiac catheterization History of coronary artery stent placement Family History Family History Mother Asthma Sibling Asthma Father No problems noted. Social History Social History Social History: Surrogate medical decision maker: Genevieve Duran, spouse. Code status: Full code. Smoking packs per day: 1.5 Smoking cigarettes per day: 30.0 Years smoked: 30 Smoking pack-years: 45.00 Smoking status: Former smoker Tobacco type: cigarettes Smoking end date: 07/09/09 Alcohol intake: never Substance use: never Lack of Transportation: No Lack of Food: Never True Current Housing: I Have Housing Concerned About Future Housing: No Difficulty Paying Gas/Electric Bills: No Difficulty Paying for Meds: No Currently Unemployed: YES Education: High School Diploma/GED Difficulty w/ Childcare or Family Care: No Additional living arrangements comments: The patient lives with his in [place]. 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 Spiritual care concerns: No Exam Narrative: GENERAL: Well appearing, morbidly obese with BMI of 41.5, non-toxic, in no acute distress. HEAD: Normocephalic, atraumatic. RESPIRATORY: Airway patent, respirations nonlabored. Clear to auscultation bilaterally, no rales, rhonchi, wheezing. CARDIOVASCULAR: Regular rate and rhythm. ABDOMINAL: Soft, no tenderness throughout L sided abdomen. Normoactive BS. MUSCULOSKELETAL: Moves all extremities. No gross deformities. Full ran
[2023-04-18] MEDS: ACETAMINOPHEN 500 MG TABLET 1000 MG PO (11:12)
== END 2023-04-18 12:05 | disposition home or self-care (01) ==
PROVIDERS: Emergency Provider Physician Assistant
DX: S40.022A Contusion of left upper arm, initial encounter (principal); S70.02XA Contusion of left hip, initial encounter; J45.909 Unspecified asthma, uncomplicated; E11.9 Type 2 diabetes mellitus without complications; I10 Essential (primary) hypertension; E78.5 Hyperlipidemia, unspecified; G47.30 Sleep apnea, unspecified; I25.10 Atherosclerotic heart disease of native coronary artery without angina pectoris; W06.XXXA Fall from bed, initial encounter
CPT/HCPCS: 73060; 73502; 73564; 99284; A9270